=== PATIENT | male | born 1980 | race Caucasian/White ===

== ENCOUNTER 2016-08-16 09:10 | Emergency (ER) | payer MEDICAID ==
[~2016-08-16] VITALS: Ht 177.8 cm; Wt 77.7 kg
[2016-08-16 09:11] VITALS: BP 116/76
[2016-08-16] MEDS ORDERED: ALBUTEROL SULFATE 2.5 MG/3 ML ONE (09:46)
[2016-08-16] MEDS ORDERED: ALBUTEROL SULFATE 2.5 MG/3 ML NPPB ONE (10:00)
== END 2016-08-16 10:28 | disposition home or self-care (01) ==
LOC: ED 10:06
DX: J45.31 Mild persistent asthma with (acute) exacerbation (principal); B34.9 Viral infection, unspecified
CPT/HCPCS: 71020; 94640; 99284; J7512; J7613

== ENCOUNTER 2017-10-28 13:14 | Emergency (ER) | payer MEDICAID, OTHER ==
[~2017-10-28] VITALS: Ht 177.8 cm; Wt 81.2 kg
[2017-10-28 13:17] VITALS: BP 114/73
== END 2017-10-28 14:22 | disposition home or self-care (01) ==
LOC: ED 14:00
DX: S90.32XA Contusion of left foot, initial encounter (principal); W22.8XXA Striking against or struck by other objects, initial encounter; Y93.89 Activity, other specified; Y99.8 Other external cause status; Y92.009 Unspecified place in unspecified non-institutional (private) residence as the place of occurrence of the external cause
CPT/HCPCS: 99284

== ENCOUNTER 2018-08-15 13:58 | Emergency (ER) | payer OTHER ==
[~2018-08-15] VITALS: Ht 177.8 cm; Wt 84.0 kg
[2018-08-15 14:04] VITALS: BP 100/73
[2018-08-15] MEDS ORDERED: DIPH,PERTUSS(ACELL),TET VAC/PF 0.5 ML IM-VACC ONE ×2 (14:14→14:30)
== END 2018-08-15 14:40 | disposition home or self-care (01) ==
LOC: ED 14:31
DX: S80.812A Abrasion, left lower leg, initial encounter (principal); J45.909 Unspecified asthma, uncomplicated; A35 Other tetanus; X58.XXXA Exposure to other specified factors, initial encounter; Y93.89 Activity, other specified; Y92.89 Other specified places as the place of occurrence of the external cause; Y99.8 Other external cause status
CPT/HCPCS: 90471; 90715; 99283